=== PATIENT | female | born 1990 | race Caucasian/White ===

== ENCOUNTER 2018-05-21 18:25 | Emergency (ER) | payer OTHER, SELFPAY ==
[2018-05-21 18:44] VITALS: BP 141/86; PULSE 97; RESP 16; TEMP 36.6; O2SAT 100; BMI 37.5
--- NOTE | 2018-05-21 19:11 | PC.NURSE ---
Feels like she is getting tiny zaps in her chest
[2018-05-21 19:18] VITALS: BP 139/84; PULSE 79; RESP 13; O2SAT 100
--- NOTE | 2018-05-21 19:29 | ED_ITS ---
HPI - Arrhythmia/Palpitations General Chief Complaint: Arrhythmia/Palpitations Stated Complaint: HEART PALPITATIONS,LIGHTHEADED Time Seen by Provider: 05/21/18 19:28 Source: patient Mode of arrival: ambulatory Limitations: no limitations History of Present Illness HPI narrative: The patient arrives complaining of palpitations. Earlier today she developed a sensation of skipping in her heartbeat in her chest. She is having no chest pain, dyspnea, weakness or dizziness. She doess not there like she could pass out. She has no cardiac history. She has a strong family history of cardiac illness, through multiple family members. She has no hypertension, diabetes or hyperlipidemia. She does occasionally vape. She does not use cigarettes. This is happened before, but never to this degree. She tells me she has not been drinking enough water, hydration might be an issue. She is on antidepressant/antianxiety tablet, she forgot to take it yesterday morning. She did take it yesterday evening. She has no recent illness, no URI symptoms, no abdominal discomfort, nausea vomiting. Her LMP was several days ago. She has no dysuria. Related Data Allergies Allergy/AdvReac Type Severity Reaction Status Date / Time IV contrast Allergy Uncoded 05/21/18 18:47 Review of Systems Review of Systems All systems reviewed & are unremarkable except as noted in HPI and below Constitutional Denies chills, Denies fever(s), Denies lethargy and Denies weakness ENT Ears, Nose, Mouth, and Throat: Denies change in voice, Denies vertigo, Denies dizziness, Denies neck pain and Denies sore throat Cardiovascular Denies chest pain, Denies syncope, Denies lightheadedness, Reports palpitations , Denies dyspnea, Denies dyspnea on exertion and Denies orthopnea Respiratory Denies cough, Denies dyspnea, Denies dyspnea on exertion and Denies wheezing Gastrointestinal Gastrointestinal: Denies abdominal pain, Denies change in bowel habits, Denies diarrhea, Denies nausea and Denies vomiting Genitourinary Denies dysuria and Denies flank pain Musculoskeletal Denies joint swelling and Denies neck pain Integumentary/Breasts Denies pruritus, Denies erythema, Denies rash and Denies wounds Neurologic Denies confusion, Denies vertigo, Denies dizziness, Denies syncope and Denies weakness Psychiatric Denies confusion Endocrine Reports palpitations Allergic/Immunologic Denies wheezing [facility] Social History Smoking Status: Never smoker Exam Initial Vital Signs Initial Vital Signs: Vital Signs Temperature 97.9 F 05/21/18 18:44 Pulse Rate 97 H 05/21/18 18:44 Respiratory Rate 16 05/21/18 18:44 Blood Pressure 141/86 H 05/21/18 18:44 Pulse Oximetry 100 05/21/18 18:44 Const General: cooperative and well developed Nutritional Appearance: well nourished Orientation: alert, awake, oriented x3 and not confused [facility] Head: normocephalic and atraumatic Ears: external ears normal and TM's normal bilaterally Nose: external nose normal and No nasal discharge Face and sinus: sinuses nontender, face symmetric, no sinus tenderness and No dry mucous membranes Mouth: oral mucosae normal and moist mucous membranes Teeth and gingiva: dentition normal Throat: tonsils normal and uvula midline Neck Neck: normal visual inspection, trachea midline, No lymphadenopathy, No midline deformity and No JVD Lymphatic: No lymphedema Chest Chest: normal inspection of the chest Resp Effort & Inspection: normal respiratory effort, able to speak in complete sentences, no respiratory distress and no use of accessory muscles Auscultation: clear to auscultation bilaterally, no rales, no rhonchi and no wheezes Cardio Rate: regular rate Rhythm: regular rhythm Heart Sounds: no click, no gallops, no murmurs and no rubs Pulses: normal peripheral pulses GI Inspection: non-distended Palpation: soft, no hepatosplenomegaly, No guarding, No pulsatile mass and No tender Auscultation: normal bowel sounds Skin General: no rashes or lesions noted, No jaundice and No petechiae Neuro General: alert, oriented x3, gait normal and no focal motor deficits Speech: speech normal Extrem General: full ROM, no clubbing, cyanosis or edema, no pedal edema and no calf tenderness Course Hospital Course: As I interview the patient 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 She had occasional PVCs that corresponded well with the sensation she was experiencing her chest. There is no suggestion of a arrhythmia, only occasional unifocal PVCs. Orders Ordered: ED Orders 05/21/18 18:50 EKG-12 Lead Stat 05/21/18 18:53 Basic Metabolic Panel Stat Complete Blood Count AUTO DIFF Stat Magnesium Stat PTT [Partial Thromboplastin Time] Stat Prothrombin Time INR Stat Troponin with CK Cardiac Panel Stat 05/21/18 20:07 XR chest 1V Stat Vital Signs - 8 hr 05/21/18 18:44 05/21/18 19:18 05/21/18 20:13 Temperature 97.9 F Pulse Rate 97 H 79 89 Respiratory Rate 16 13 18 Blood Pressure 141/86 H Blood Pressure [Left Arm] 139/84 H 124/57 H Pulse Oximetry 100 100 99 MDM - Arrhythmia/Palpitations Lab Data Result diagrams: 05/21/18 18:53 05/21/18 18:53 Lab Results 05/21/18 05/21/18 05/21/18 Range/Units 18:53 18:53 18:53 WBC 9.9 (4.5-11.0) X10^3/uL RBC 4.56 (4.0-5.2) X10^6/uL Hgb 13.5 (12.0-16.0) g/dL Hct 39.5 (36-46) % MCV 86.5 (80-100) fL MCH 29.7 (26-34) PG MCHC 34.3 (30-36) % RDW 13.7 (11.6-14.8) % Plt Count 369 (150-400) X10^3/uL Neut % (Auto) 55.3 (50-75) % Lymph % (Auto) 33.9 (25-40) % [place] % (Auto) 7.2 (3-14) % Eos % (Auto) 2.2 (2-4) % Baso % (Auto) 1.4 (0-2) % Neut # (Auto) 5500 (9972-1068) /uL PT 11.8 (10.1-12.7) SECONDS INR 1.1 (0.9-1.3) APTT 29 (26.4-36.2) SECONDS Sodium 141 (137-145) mmol/L Potassium 3.5 (3.4-5.1) mmol/L Chloride 104 (98-107) mmol/L Carbon Dioxide 23 (22-32) mmol/L BUN 16 (7-17) mg/dL Creatinine 0.70 (0.52-1.04) mg/dL Estimated GFR > 60.0 (>60) mL/min BUN/Creatinine Ratio 22.9 H (6-22) Glucose 87 (70-100) mg/dL Calcium 9.9 (8.4-10.2) mg/dL Magnesium (1.6-2.3) mg/dL Total Creatine Kinase (30-135) U/L CK-MB (CK-2) Troponin I (0.01-0.034) ng/mL 05/21/18 Range/Units 18:53 WBC (4.5-11.0) X10^3/uL RBC (4.0-5.2) X10^6/uL Hgb (12.0-16.0) g/dL Hct (36-46) % MCV (80-100) fL MCH (26-34) PG MCHC (30-36) % RDW (11.6-14.8) % Plt Count (150-400) X10^3/uL Neut % (Auto) (50-75) % Lymph % (Auto) (25-40) % [place] % (Auto) (3-14) % Eos % (Auto) (2-4) % Baso % (Auto) (0-2) % Neut # (Auto) (2054-5936) /uL PT (10.1-12.7) SECONDS INR (0.9-1.3) APTT (26.4-36.2) SECONDS Sodium (137-145) mmol/L Potassium (3.4-5.1) mmol/L Chloride (98-107) mmol/L Carbon Dioxide (22-32) mmol/L BUN (7-17) mg/dL Creatinine (0.52-1.04) mg/dL Estimated GFR (>60) mL/min BUN/Creatinine Ratio (6-22) Glucose (70-100) mg/dL Calcium (8.4-10.2) mg/dL Magnesium 1.9 (1.6-2.3) mg/dL Total Creatine Kinase 71 (30-135) U/L CK-MB (CK-2) TNP Troponin I < 0.012 (0.01-0.034) ng/mL ECG Data Attestation: I personally reviewed and interpreted this ECG as follows: Discharge Plan Departure Patient Disposition: Home, Self-Care Clinical Impression: Frequent PVCs Instructions: Premature Ventricular Beats Activity Restrictions/Additional Instructions: Your electrolytes, blood counts, renal function all labs tests are normal. Be sure you are drinking plenty of fluids daily, maintaining good hydration. If symptoms persist follow up with her doctor. Return to ER for chest pain, problems breathing, or feeling weak or dizzy.
[2018-05-21 19:40] LABS: Add Manual Diff / Slide Review NO; Basophils Percent Auto 1.4 % (0-2); Eosinophils Percent Auto 2.2 % (2-4); Hematocrit 39.5 % (36-46); Hemoglobin 13.5 g/dL (12.0-16.0); Lymphocytes Percent Auto 33.9 % (25-40); Mean Corpuscular HGB Conc 34.3 % (30-36); Mean Corpuscular Hemoglobin 29.7 PG (26-34); Mean Corpuscular Volume 86.5 fL (80-100); Monocytes Percent Auto 7.2 % (3-14); Neutrophils Absolute Auto 5500 /uL (3000-5900); Neutrophils Percent Auto 55.3 % (50-75); Platelet Count 369 X10^3/uL (150-400); Red Blood Cell Count 4.56 X10^6/uL (4.0-5.2); Red Cell Distribution Width 13.7 % (11.6-14.8); White Blood Cell Count 9.9 X10^3/uL (4.5-11.0)
[2018-05-21 19:42] LABS: INR 1.1 (0.9-1.3); Prothrombin Time 11.8 SECONDS (10.1-12.7)
[2018-05-21 19:45] LABS: PTT Partial Thromboplastin Tim 29 SECONDS (26.4-36.2)
[2018-05-21 19:53] LABS: Creatine Kinase 71 U/L (30-135)
[2018-05-21 19:54] LABS: BUN Creatinine Ratio 22.9 (6-22); Blood Urea Nitrogen 16 mg/dL (7-17); Calcium 9.9 mg/dL (8.4-10.2); Carbon Dioxide 23 mmol/L (22-32); Chloride 104 mmol/L (98-107); Estimated Glomerular Filt Rate > 60.0 mL/min (>60); Glucose 87 mg/dL (70-100); HEMOLYSIS 36 (0-50); Potassium 3.5 mmol/L (3.4-5.1); Sodium 141 mmol/L (137-145)
--- NOTE | 2018-05-21 20:07 | DI.RAD.S_ITS ---
PROCEDURE: XR CHEST 1V INDICATIONS: dizziness with sharp spasms in chest TECHNIQUE: One view of the chest was acquired. COMPARISON: None. FINDINGS: Surgical changes and devices: None. Lungs and pleura: No pleural effusions or pneumothorax. Lungs are clear. Mediastinum: Mediastinal contours appear normal. Heart size is normal. Bones and chest wall: No suspicious bony lesions. Overlying soft tissues appear unremarkable. IMPRESSION: No acute pulmonary process. Dictated by: Yareli Aleman M.D. on 05/21/2018 at 21:29 Approved by: Yareli Aleman M.D. on 05/21/2018 at 21:29
[2018-05-21 20:11] LABS: Troponin I < 0.012 ng/mL (0.01-0.034)
[2018-05-21 20:13] VITALS: BP 124/57; PULSE 89; RESP 18; O2SAT 99
[2018-05-21 20:34] LABS: Magnesium 1.9 mg/dL (1.6-2.3)
== END 2018-05-21 21:02 | disposition home or self-care (01) ==
PROVIDERS: Emergency Provider Emergency Medicine
DX: I49.3 Ventricular premature depolarization (principal)
CPT/HCPCS: 36591; 71045; 80048; 81003; 81025; 82550; 83735; 84484; 85025; 85610; 85730; 93005; 93041; 99283; 99285

== ENCOUNTER → 2018-07-11 07:56 | Outpatient (CLI) | payer OTHER, SELFPAY ==
--- NOTE | 2018-07-11 13:36 | DI.ECHO.S_ITS ---
Echocardiogram Report + + :Name: GUILHERME MACHADO Study Date: 07/11/2018 Height: 67 in : :[facility] Weight: 244 lb : : Gender: Female BSA: 2.2 m2 : :: 1990 Age: 27 yrs BP: 122/72 mmHg: :Reason For Study: Palpitations : : Performed By: Peace Cheema : :Referring: ELLEN SILVESTRE : + + Interpretation Summary The left ventricle is normal in size, wall thickness, and systolic function without any focal wall motion abnormalities. The ejection fraction is estimated to be 60-65%. Assessment of diastolic parameters indicates normal left ventricular diastolic function and normal filling pressures. The right ventricle grossly appears normal in size with probable normal systolic function. The right ventricular systolic pressure is estimated at 18 mmHg assuming a right atrial pressure of 3 mm Hg. The IVC is of normal diameter and collapses greater than 50% with a sniff. This suggests a normal right atrial pressure of 3 mm Hg. No significant valvular pathology. Normal echocardiogram. Of note the patient had intermittent ectopy during the exam which might correlate with the history of palpitations. Procedure: A two-dimensional transthoracic echocardiogram with color flow and Doppler was performed. The study quality was technically good. There is no prior echocardiogram noted for this patient. The patient was in normal sinus rhythm during the exam. Left Ventricle: The left ventricle is normal in size, wall thickness, and systolic function without any focal wall motion abnormalities. The ejection fraction is estimated to be 60-65%. Assessment of diastolic parameters indicates normal left ventricular diastolic function and normal filling pressures. Right Ventricle: The right ventricle grossly appears normal in size with probable normal systolic function. Atria: The left atrial size is normal. Right atrial size is normal. The interatrial septum is intact with no evidence for an atrial septal defect. Mitral Valve: The mitral valve is normal in structure and function. There is no mitral regurgitation noted. Aortic Valve: The aortic valve opens well. No aortic regurgitation is present. Tricuspid Valve: The tricuspid valve is normal in structure and function. There is a trace or physiologic amount of tricuspid regurgitation. The right ventricular systolic pressure is estimated at 18 mmHg assuming a right atrial pressure of 3 mm Hg. Pulmonic Valve: The pulmonic valve is not well seen, but is grossly normal. There is no pulmonic valvular regurgitation. Great Vessels: The aortic root is normal size. The dimensions of the ascending aorta are normal. The IVC is of normal diameter and collapses greater than 50% with a sniff. This suggests a low right atrial pressure of 3 mm Hg. Pericardium/ Pleura There is no pericardial effusion. There is no pleural effusion. MMode/2D Measurements & Calculations LVIDd: 4.4 cm Ao root diam: 3.3 cm LVIDs: 3.0 cm Aortic Jxn: 2.5 cm FS: 31.4 % asc Aorta Diam: 3.0 cm EPSS: 0.73 cm Ao Arch Diam (Prox Trans): 2.5 cm IVSd: 0.87 cm LVPWd: 0.68 cm LV cabral. diameter/BSA (cm/m^2): 2.0 LV sys. diameter/BSA (cm/m^2): 1.4 LA dimension: 3.6 cm RA long axis: 4.5 cm LA A2 area: 20.0 cm2 RA area: 14.6 cm2 LA A4 area: 19.6 cm2 RA vol: 40.1 ml LA length (vol): 5.7 cm RA : 18.2 ml/m2 LA vol: 58.6 ml IVC diam: 1.7 cm LA vol index: 26.6 ml/m2 RVDd major: 5.6 cm RVD1 (basal): 3.3 cm RVD2 (mid): 3.0 cm Doppler Measurements & Calculations Ao V2 max: 130.5 cm/sec MV E max sanchez: 97.9 cm/sec Ao V2 mean: 86.0 cm/sec MV A max sanchez: 63.6 cm/sec Ao max P.8 mmHg MV E/A: 1.5 Ao mean P.4 mmHg Med Peak E' Sanchez: 9.5 cm/sec Ao V2 VTI: 25.7 cm E/E' med: 10.3 Lat Peak E' Sanchez: 10.4 cm/sec E/E' lat: 9.4 E/e' average: 9.9 MV dec time: 0.17 sec MV P1/2t: 50.4 msec TR max sanchez: 198.5 cm/sec MV P1/2t max sanchez: 97.4 cm/sec TR max P.8 mmHg MVA(P1/2t): 4.4 cm2 PA V2 max: 78.6 cm/sec PA V2 mean: 52.5 cm/sec PA mean P.3 mmHg PA Accel Time: 0.22 sec _ Electronically signed by: Aristeo Coreas M.D. on Reading Physician:07/11/2018 01:36 PM
== END ==
PROVIDERS: PCP Nurse Practitioner Family; Visit Provider Nurse Practitioner Family
DX: R00.2 Palpitations (principal); E78.5 Hyperlipidemia, unspecified
CPT/HCPCS: 93306

== ENCOUNTER → 2018-08-09 10:23 | Outpatient (CLI) | payer OTHER, SELFPAY ==
--- NOTE | 2018-08-09 | DI.MRI.S_ITS ---
PROCEDURE: MR CERVICAL SPINE WO CON INDICATIONS: BILATERAL UPPER AND LOWER EXTREMITY NUMBNESS TECHNIQUE: Noncontrast sagittal T1 spin echo and T2 fast spin echo, sagittal STIR, foraminal oblique sagittal T2 fast spin echo, and axial gradient echo or T2 fast spin echo through the cervical spine. COMPARISON: None. FINDINGS: Image quality: Diagnostic, with note made of motion artifact. Alignment and Curvature: There is normal bony alignment. Bone Marrow: Marrow demonstrates normal overall signal. Spinal Cord: Visualized spinal cord has normal size and signal. No cerebellar tonsillar herniation. Paraspinous Soft Tissues: No paravertebral masses. Prevertebral soft tissues are normal in thickness. C2-C3: Normal appearance. C3-C4: Normal appearance. C4-C5: The disc height is relatively well-preserved. Mild to moderate disc osteophyte complex is seen, with a mild central disc osteophyte protrusion. No neural foraminal narrowing is seen. Mild central canal narrowing is seen, with associated mild mass effect upon the ventral spinal cord. C5-C6: No significant abnormality is seen. C6-C7: Normal appearance. C7-T1: Normal appearance. IMPRESSION: Focal C4-C5 degenerative change, with a focal central disc osteophyte protrusion. Dictated by: Jeffrey Guzman M.D. on 08/09/2018 at 11:06 Approved by: Jeffrey Guzman M.D. on 08/09/2018 at 11:08
== END ==
PROVIDERS: PCP Nurse Practitioner Family; Visit Provider Family Medicine
DX: M50.221 Other cervical disc displacement at C4-C5 level (principal); M25.78 Osteophyte, vertebrae; R20.0 Anesthesia of skin
CPT/HCPCS: 72141

== ENCOUNTER → 2018-08-22 11:57 | Outpatient (CLI) | payer OTHER, SELFPAY ==
--- NOTE | 2018-08-22 12:03 | DI.RAD.S_ITS ---
PROCEDURE: XR LUMBAR SPINE MIN 4V INDICATIONS: Lumbosacral spondylosis TECHNIQUE: 5 views of the lumbar spine acquired. COMPARISON: None. FINDINGS: Bones: 5 nonrib-bearing vertebrae are present. There is normal bony alignment. No vertebral body compression fractures. No suspicious bony lesions. There is mild degenerative disc disease with disc space narrowing and small osteophytes at L1-L2 and L2-L3. Soft tissues: Overlying bowel gas pattern is normal. No suspicious soft tissue calcifications. Flexion/extension: There is normal range of motion, with preserved normal alignment. IMPRESSION: Mild degenerative disc disease in lumbar spine. Dictated by: Ranjana Stapleton M.D. on 08/22/2018 at 17:02 Approved by: Ranjana Stapleton M.D. on 08/23/2018 at 11:22
--- NOTE | 2018-08-22 12:03 | DI.RAD.S_ITS ---
PROCEDURE: XR CERVICAL SPINE 4V OR 5V INDICATIONS: Cervical spondylosis TECHNIQUE: 5 views of the cervical spine acquired. COMPARISON: None. FINDINGS: Bones: No fractures or dislocations to the C7 level. There is loss of cervical lordosis. Oblique images demonstrate no bony foraminal stenoses. Soft tissues: No prevertebral soft tissue swelling. IMPRESSION: Loss of cervical lordosis. Dictated by: Ranjana Stapleton M.D. on 08/22/2018 at 17:04 Approved by: Ranjana Stapleton M.D. on 08/23/2018 at 11:22
== END ==
PROVIDERS: PCP Nurse Practitioner Family; Visit Provider Physical Medicine & Rehabilitation
DX: M47.817 Spondylosis without myelopathy or radiculopathy, lumbosacral region (principal); M51.36 Other intervertebral disc degeneration, lumbar region; M47.812 Spondylosis without myelopathy or radiculopathy, cervical region; R20.2 Paresthesia of skin; M50.221 Other cervical disc displacement at C4-C5 level
CPT/HCPCS: 72050; 72110

== ENCOUNTER → 2018-09-11 19:07 | Outpatient (CLI) | payer OTHER, SELFPAY ==
--- NOTE | 2018-09-11 19:09 | DI.MRI.S_ITS ---
PROCEDURE: MR LUMBAR SPINE WO CON INDICATIONS: Lumbosacral spondylosis with neurogenic claudication TECHNIQUE: Noncontrast sagittal T1 spin echo and T2 fast echo, sagittal STIR, axial T1 and T2 fast spin echo through the lumbar spine. In cases with scoliosis, additional coronal T2 fast spin echo may be performed. COMPARISON: [facility], CR, XR LUMBAR SPINE MIN 4V, 08/22/2018, 12:07. FINDINGS: Image quality: Excellent. Alignment and Curvature: There is normal bony alignment. Bone Marrow: Marrow is of normal overall signal. No acute vertebral body compression fractures. Spinal Cord: Conus medullaris terminates at the L1 level. Visualized cord demonstrates normal signal and size. Paraspinous Soft Tissues: No paravertebral masses. T12-L1: Normal appearance. L1-L2: Normal appearance. L2-L3: The disc height and disc signal are relatively well-preserved. There is a mild subligamentous disc extrusion seen centrally and on the right, as on series 4 image 9 and on series 5 image 13. No significant neural foraminal or central canal narrowing are seen. L3-L4: The disc height and disk signal are well-preserved. Mild to moderate disc bulge is seen. Mild bilateral neural foraminal narrowing is seen. Mild central canal narrowing is seen. L4-L5: The disc height is well-preserved. Loss of disc signal is seen at this level. Mild disc bulge is seen, which is eccentric to the right. No significant neural foraminal or central canal narrowing are seen. L5-S1: Level within normal limits. IMPRESSION: Mild lumbar spine degenerative changes are seen. There is a small disc extrusion seen centrally at the L2-L3 level. Dictated by: Jeffrey Guzman M.D. on 09/12/2018 at 8:30 Approved by: Jeffrey Guzman M.D. on 09/12/2018 at 8:33
== END ==
PROVIDERS: PCP Nurse Practitioner Family; Visit Provider Physical Medicine & Rehabilitation
DX: M47.817 Spondylosis without myelopathy or radiculopathy, lumbosacral region (principal)
CPT/HCPCS: 72148

== ENCOUNTER → 2018-09-25 14:50 | Outpatient (CLI) | payer OTHER, SELFPAY | PROVIDERS: PCP Nurse Practitioner Family | DX: Z23 Encounter for immunization (principal) | CPT/HCPCS: 90471; 90686 ==

== ENCOUNTER → 2018-11-07 08:26 | Outpatient (CLI) | payer OTHER, SELFPAY ==
--- NOTE | 2018-11-08 15:46 | PM.PFT.1 ---
Pulmonary Function Test Referral & Results Date Patient Seen: 11/07/18 Requesting provider: Ramonita Grimaldo Indication: Obesity Results: The spirometry demonstrates an FVC of 4.50 L which is 180% of predicted. The FEV1 was measured at 3.58 L which is 101% of predicted. The FEV1/FVC ratio was 79 which is 93% of predicted. Following the administration of bronchodilator there was a 33% improvement in FEF 25-75%. Lung volumes show an SVC of 4.45 L which is 111% of predicted. The diffusing capacity was measured at 29.23 which is 103% of predicted. The maximum voluntary ventilation was normal Interpretation: This study demonstrates probably normal pulmonary function. There was a slight improvement in small airway flow based on FEF 25-75% improvement after bronchodilator but baseline spirometry was actually normal.
== END ==
PROVIDERS: PCP Nurse Practitioner Family; Visit Provider Nurse Practitioner Family
DX: E66.01 Morbid (severe) obesity due to excess calories (principal)
CPT/HCPCS: 93005; 93010; 94060; 94726; 94729

== ENCOUNTER → 2019-08-19 08:57 | Outpatient (CLI) | payer OTHER, SELFPAY | PROVIDERS: PCP Nurse Practitioner Family | DX: Z23 Encounter for immunization (principal) | CPT/HCPCS: 90471; 90686 ==

== ENCOUNTER → 2019-09-03 11:12 | Outpatient (CLI) | payer OTHER, SELFPAY ==
--- NOTE | 2019-09-03 | DI.RAD.S_ITS ---
PROCEDURE: XR KNEE LT 3V INDICATIONS: LEFT KNEE PAIN TECHNIQUE: 3 views of the knee were acquired. COMPARISON: None. FINDINGS: Bones: No fractures or dislocations. No suspicious bony lesions. Soft tissues: No joint effusion. No suspicious soft tissue calcifications. IMPRESSION: No acute radiographic findings. If pain persists, followup imaging in 5-7 days is recommended to exclude occult fracture. Dictated by: Desi Mcdonald M.D. on 09/03/2019 at 16:18 Approved by: Desi Mcdonald M.D. on 09/03/2019 at 16:18
== END ==
PROVIDERS: PCP Nurse Practitioner Family; Visit Provider Nurse Practitioner
DX: M25.562 Pain in left knee (principal)
CPT/HCPCS: 73562

== ENCOUNTER 2019-11-12 23:57 | Emergency (ER) | payer OTHER, SELFPAY ==
[2019-11-13 00:06] VITALS: BP 143/85; PULSE 101; RESP 15; TEMP 37.1; O2SAT 97; BMI 35.4
[2019-11-13 00:11] LABS: Bacteria Urine None Seen
[2019-11-13 00:17] LABS: Appearance Urine UA SL CLOUDY
--- NOTE | 2019-11-13 00:17 | ED_ITS ---
HPI - Female Genitourinary General Chief complaint: Urogenital-Female Stated complaint: blood in urine nausea back pain Time Seen by Provider: 11/13/19 00:03 Source: patient Mode of arrival: Ambulatory Limitations: no limitations History of Present Illness HPI Narrative: Patient is a 29-year-old female with history of kidney stones presenting with painful frequent bloody urination and some left-sided flank pain for the last 2 days. She feels a little nauseous today her flank pain does not radiate around to her stomach but she does have some suprapubic pain. She took some azo today to help with her dysuria however she had blood clots in her normal today. She is worried to she had a previously obstructed kidney stone which did not require any intervention and her symptoms were similar. Her last kidney stones were a couple of years ago. MD Complaint: dysuria and UTI Onset (ago): day(s) (2) Female Urogenital Radiation: L Flank Related Data Home Medications Medication Instructions Recorded Confirmed venlafaxine 75 mg capsule,extended 75 mg PO DAILY 08/22/18 11/03/19 release 24 hr bupropion HCl 150 mg tablet,12 hr 450 mg PO DAILY each 04/28/19 11/03/19 sustained-release gabapentin 300 mg capsule 300 mg PO TID PRN cap 04/28/19 11/03/19 Previous Rx's Medication Instructions Recorded inhalational spacing device #1 each 07/01/19 phentermine 37.5 mg tablet 37.5 mg PO BID #90 tab 07/15/19 albuterol sulfate 90 mcg/actuation 2 inhalation INHALATION .COMPLEX 11/03/19 aerosol inhaler PRN #8 gram ondansetron 4 mg PO Q8H PRN #10 tab 11/13/19 sulfamethoxazole-trimethoprim 1 tab PO BID 7 Days #14 tab 11/13/19 [Bactrim DS] Allergies Allergy/AdvReac Type Severity Reaction Status Date / Time Iodinated Contrast Media Allergy Verified 11/13/19 00:06 Review of Systems Review of Systems Narrative: GENERAL: Denies chills, fatigue, malaise, fever, sweats, travel HEENT: Denies sinus pain, ear pain, sore throat, difficulty swallowing, neck pain RESPIRATORY: Denies dyspnea, cough, wheezing, hemoptysis, sputum. CARDIOVASCULAR: Denies chest pain, palpitations, orthopnea, edema GASTROINTESTINAL: Denies nausea, vomiting, abdominal pain, diarrhea, constipation, melena. : See HPI MUSCULOSKELETAL: Denies weakness, joint pain, or bony pain SKIN: No rash, no erythema, no pruritus NEUROLOGIC: Denies weakness, dizziness, headache, numbness, change in speech, confusion PSYCHIATRIC: No concerning psychosocial issues. 12 point review of systems is negative except for those stated above and HPI Patient History Medical History Arthralgia of multiple joints (Chronic) Asthma (Acute) Herniated nucleus pulposus, C4-5 (Chronic) Lumbar facet arthropathy (Chronic) Lumbosacral spondylosis (Chronic) Paresthesia of upper extremity (Chronic) Sleep apnea (Acute) alcohol intake frequency: holidays/special occasions only Substance Use Type: does not use Exam Initial Vital Signs Initial Vital Signs: Vital Signs Temperature 98.8 F 11/13/19 00:06 Pulse Rate 101 H 11/13/19 00:06 Respiratory Rate 15 11/13/19 00:06 Blood Pressure 143/85 H 11/13/19 00:06 Pulse Oximetry 97 11/13/19 00:06 GENERAL: Well-appearing, well-nourished and in no acute distress. HEENT: Head atraumatic,EOMI, pupils reactive, face symmetric, moist mucous membranes CARDIOVASCULAR: Regular rate and rhythm without murmurs, rubs or gallops. RESPIRATORY: Breath sounds equal bilaterally, no wheezes rales or rhonchi. ABDOMEN: Soft, mild suprapubic pain. Normoactive bowel sounds all 4 quadrants. No guarding or rebound. : Mild left CVA tenderness EXTREMITIES: Normal range of motion, no clubbing or edema. Neurovascularly intact NEUROLOGICAL: Alert and oriented x4.Normal gait and speech. Cranial nerves II through XII grossly intact. SKIN: Warm, dry, no laceration, no petechiae, no rashes or lesions. Course Orders Ordered: ED Orders 11/13/19 00:01 Urinalysis and Microscopic Stat Urine Culture Stat 11/13/19 00:10 Complete Blood Count AUTO DIFF Stat Comprehensive Metabolic Panel Stat Lipase Stat Discontinued Medications Ondansetron HCl (Zofran) 4 mg IV NOW ONE Stop: 11/13/19 00:29 Last Admin: 11/13/19 00:37 Dose: 4 mg Documented by: DIVINE Ondansetron HCl (Zofran Odt Prepack) 1 bottle MISC SEEINSTR ONE Stop: 11/13/19 01:09 Last Admin: 11/13/19 01:18 Dose: 1 bottle Documented by: DIVINE Trimethoprim/Sulfamethoxazole (Bactrim Ds Prepack) 1 bottle MISC SEEINSTR ONE Stop: 11/13/19 01:09 Last Admin: 11/13/19 01:18 Dose: 1 bottle Documented by: DIVINE Vital Signs Vital signs: Vital Signs - 8 hr 11/13/19 00:06 11/13/19 01:19 Temperature 98.8 F Pulse Rate 101 H 84 Respiratory Rate 15 17 Blood Pressure 143/85 H Blood Pressure [Right Arm] 117/65 Pulse Oximetry 97 99 MDM - Female Genitourinary Lab Data Attestation: I reviewed the patient's lab results. Result diagrams: 11/13/19 00:10 11/13/19 00:10 Labs: Lab Results 11/13/19 11/13/19 11/13/19 Range/Units 00:01 00:10 00:10 WBC 13.5 H (4.5-11.0) X10^3/uL RBC 4.25 (4.0-5.2) X10^6/uL Hgb 12.7 (12.0-16.0) g/dL Hct 37.2 (36-46) % MCV 87.5 (80-100) fL MCH 29.8 (26-34) PG MCHC 34.0 (30-36) % RDW 13.8 (11.6-14.8) % Plt Count 403 H (150-400) X10^3/uL Neut % (Auto) 68.2 (50-75) % Lymph % (Auto) 23.0 L (25-40) % [place] % (Auto) 5.9 (3-14) % Eos % (Auto) 2.3 (2-4) % Baso % (Auto) 0.6 (0-2) % Neut # (Auto) 9200 H (3508-5854) /uL Lymph # (Auto) 3100 (8009-7610) /uL [place] # (Auto) 800 (0-900) /uL Eos # (Auto) 300 (0-450) /uL Baso # (Auto) 100 (0-100) /uL Sodium 138 (137-145) mmol/L Potassium 3.4 (3.4-5.1) mmol/L Chloride 103 (98-107) mmol/L Carbon Dioxide 27 (22-32) mmol/L BUN 13 (7-17) mg/dL Creatinine 0.60 (0.52-1.04) mg/dL Estimated GFR > 60.0 (>60) mL/min BUN/Creatinine Ratio 21.7 (6-22) Glucose 109 H (70-100) mg/dL Calcium 9.1 (8.4-10.2) mg/dL Total Bilirubin 0.3 (0.2-1.3) mg/dL AST 22 (14-36) IU/L ALT 20 (<35) IU/L Alkaline Phosphatase 70 (38-126) U/L Total Protein 7.3 (6.3-8.2) g/dL Albumin 4.2 (3.5-5.0) g/dL Globulin 3.1 (1.7-4.1) g/dL Albumin/Globulin Ratio 1.4 (1.0-2.8) Lipase 51 (23-300) U/L Urine Color [place] Urine Appearance Sl cloudy Urine pH Not Reportable Ur Specific [place] Not Reportable Urine Protein Not Reportable Urine Glucose (UA) Not Reportable Urine Ketones Not Reportable Urine Occult Blood Not Reportable Urine Nitrate Not Reportable Urine Bilirubin Not Reportable Urine Urobilinogen Not Reportable Ur Leukocyte Esterase Not Reportable Urine RBC 5-10/hpf H (0-5/HPF) Urine WBC 10-30/hpf H (0-5/HPF) Ur Squamous Epith Cells None seen (0-5/HPF) Urine Bacteria None seen (None) Ur Culture Indicated? Specimen cultured Point of Care Testing Test Results Negative MDM Narrative Medical decision making narrative: The patient is very mild flank pain. I discussed with her CT versus no CT she has had previous kidney stones that she has passed without any sort of intervention. Symptoms are also consistent with UTI she has bacteria in her urine as well. Blood work overall is reassuring tavares of acute kidney injury she has mild leukocytosis of 13. Does not appear septic. Will put her on antibiotics. At this time will hold off on CT if pain is worsening she understands to come back to the emergency department for probable imaging. Discharge Plan Departure Patient Disposition: Home Clinical Impression: Kidney stone on left side UTI (urinary tract infection) Qualifiers: Urinary tract infection type: acute cystitis Hematuria presence: with hematuria Qualified Code(s): N30.01 - Acute cystitis with hematuria Discharge Date/Time: 11/13/19 01:18 Instructions: DI for Kidney Stones, DI for Urinary Tract Infection (UTI) Activity Restrictions/Additional Instructions: *You have been diagnosed with kidney stone, UTI *What to do: At this time withhold off CT, you may require imaging if you are having worsening or persistent pain. Otherwise I suspect that if your truly having kidney stone it will pass as the others have previously. *Continue to take medications as directed--> SENT TO [facility] IN [place] Bactrim 1 tablet twice a day for 7 days Zofran 1 tablet every 8 hours as needed for nausea or vomiting Ibuprofen 800 mg every 8 hours as needed for [id number] pain *Follow up with your primary care provider in 2-3 days *Return to ER if you should have increased orellana flank pain and fever not able to tolerate fluids or any new, worsening or concerning symptoms Prescriptions: New sulfamethoxazole-trimethoprim [Bactrim DS] 800-160 mg tablet 1 tab PO BID 7 Days Qty: 14 RF: 0 ondansetron 4 mg tablet,disintegrating 4 mg PO Q8H PRN (Reason: nausea and vomiting) Qty: 10 RF: 0 No Action phentermine 37.5 mg tablet 37.5 mg PO BID Qty: 90 RF: 0 bupropion HCl [Wellbutrin SR] 150 mg tablet sustained-release 12 hr 450 mg PO DAILY RF: 0 gabapentin 300 mg capsule 300 mg PO TID PRNRF: 0 albuterol sulfate 90 mcg/actuation HFA aerosol inhaler 2 inhalation INHALATION .COMPLEX PRN (Reason: shortness of breath or wheezing) Qty: 8 RF: 2 (DME) Flexichamber spacer See Dose Instructions .ROUTE .MEDSUPPLY Qty: 1 RF: 0 venlafaxine 75 mg capsule,extended release 24hr 75 mg PO DAILY RF: 0 Referrals: Ramonita Grimaldo ARNP [Primary Care Provider] -
[2019-11-13] MEDS: ONDANSETRON 4 MG/2 ML INJ IV (00:37)
[2019-11-13 00:40] LABS: Color Urine UA ORANGE
[2019-11-13 00:41] LABS: Culture Indicated Urine Specimen Cultured; RBC Urine 5-10/HPF (0-5/HPF); Squamous Epithelial Cell Urine None Seen (0-5/HPF); WBC Urine 10-30/HPF (0-5/HPF)
[2019-11-13 00:45] LABS: Add Manual Diff / Slide Review NO; Alanine Aminotransferase 20 IU/L (<35); Albumin 4.2 g/dL (3.5-5.0); Albumin Globulin Ratio 1.4 (1.0-2.8); Alkaline Phosphatase 70 U/L (38-126); Aspartate Aminotransferase 22 IU/L (14-36); BUN Creatinine Ratio 21.7 (6-22); Basophils Absolute Auto 100 /uL (0-100); Basophils Percent Auto 0.6 % (0-2); Bilirubin Total 0.3 mg/dL (0.2-1.3); Blood Urea Nitrogen 13 mg/dL (7-17); Calcium 9.1 mg/dL (8.4-10.2); Carbon Dioxide 27 mmol/L (22-32); Chloride 103 mmol/L (98-107); Eosinophils Absolute Auto 300 /uL (0-450); Eosinophils Percent Auto 2.3 % (2-4); Estimated Glomerular Filt Rate > 60.0 mL/min (>60); Globulin 3.1 g/dL (1.7-4.1); Glucose 109 mg/dL (70-100); HEMOLYSIS < 15 (0-50); Hematocrit 37.2 % (36-46); Hemoglobin 12.7 g/dL (12.0-16.0); Lipase 51 U/L (23-300); Lymphocytes Absolute Auto 3100 /uL (1100-4500); Mean Corpuscular Hemoglobin 29.8 PG (26-34); Mean Corpuscular Volume 87.5 fL (80-100); Monocytes Absolute Auto 800 /uL (0-900); Monocytes Percent Auto 5.9 % (3-14); Neutrophils Absolute Auto 9200 /uL (1500-7000); Neutrophils Percent Auto 68.2 % (50-75); Platelet Count 403 X10^3/uL (150-400); Potassium 3.4 mmol/L (3.4-5.1); Red Blood Cell Count 4.25 X10^6/uL (4.0-5.2); Red Cell Distribution Width 13.8 % (11.6-14.8); Sodium 138 mmol/L (137-145); Total Protein 7.3 g/dL (6.3-8.2); White Blood Cell Count 13.5 X10^3/uL (4.5-11.0)
[2019-11-13] MEDS: TRIMETH/SULFA 160/800 PREPACK 1 BOTTLE MISC (01:18)
[2019-11-13] MEDS: ONDANSETRON 4 MG ODT PREPACK 1 BOTTLE MISC (01:18)
[2019-11-13 01:19] VITALS: BP 117/65; PULSE 84; RESP 17; O2SAT 99
== END 2019-11-13 01:18 | disposition home or self-care (01) ==
PROVIDERS: Emergency Provider Emergency Medicine; PCP Nurse Practitioner Family
DX: N20.0 Calculus of kidney (principal); N39.0 Urinary tract infection, site not specified
CPT/HCPCS: 36415; 80053; 81001; 81025; 83690; 85025; 87086; 96374; 99283; 99284; J2405

== ENCOUNTER → 2020-12-09 06:59 | Outpatient (CLI) | payer BC, SELFPAY ==
[2020-12-09 08:47] LABS: Add Manual Diff / Slide Review NO; Basophils Absolute Auto 100 /uL (0-100); Basophils Percent Auto 1.2 % (0-2); Eosinophils Absolute Auto 300 /uL (0-450); Eosinophils Percent Auto 3.5 % (2-4); Hematocrit 39.5 % (36-46); Hemoglobin 13.2 g/dL (12.0-16.0); Lymphocytes Absolute Auto 2200 /uL (1100-4500); Lymphocytes Percent Auto 25.2 % (25-40); Mean Corpuscular HGB Conc 33.4 % (30-36); Mean Corpuscular Hemoglobin 29.3 PG (26-34); Mean Corpuscular Volume 87.9 fL (80-100); Monocytes Absolute Auto 500 /uL (0-900); Monocytes Percent Auto 6.2 % (3-14); Neutrophils Absolute Auto 5500 /uL (1500-7000); Neutrophils Percent Auto 63.9 % (50-75); Platelet Count 394 X10^3/uL (150-400); Red Blood Cell Count 4.49 X10^6/uL (4.0-5.2); Red Cell Distribution Width 13.3 % (11.6-14.8); White Blood Cell Count 8.6 X10^3/uL (4.5-11.0)
[2020-12-09 09:13] LABS: Alanine Aminotransferase 21 IU/L (<35); Albumin 3.9 g/dL (3.5-5.0); Albumin Globulin Ratio 1.3 (1.0-2.8); Alkaline Phosphatase 58 U/L (38-126); Aspartate Aminotransferase 19 IU/L (14-36); BUN Creatinine Ratio 18.1 (6-22); Bilirubin Total 0.3 mg/dL (0.2-1.3); Blood Urea Nitrogen 13 mg/dL (7-17); Calcium 9.4 mg/dL (8.4-10.2); Carbon Dioxide 25 mmol/L (22-32); Chloride 107 mmol/L (98-107); Cholesterol 180 mg/dL (140-199); Estimated Glomerular Filt Rate > 60.0 mL/min (>60); Globulin 3.1 g/dL (1.7-4.1); Glucose 92 mg/dL (70-100); HDL Cholesterol 41 mg/dL (40-60); HEMOLYSIS < 15 (0-50); LDL Cholesterol Calculated 118 mg/dL (<100); Potassium 4.6 mmol/L (3.4-5.1); Sodium 136 mmol/L (137-145); Triglycerides 106 mg/dL (35-150)
[2020-12-09 09:34] LABS: Free T3, Triiodothyronine Free 4.43 pg/mL (2.77-5.27); Free T4, Direct Thyroxine 1.16 ng/dL (0.78-2.19)
[2020-12-09 09:48] LABS: Thyroid Stimulating Hormone 1.67 uIU/mL (0.47-4.68)
== END ==
PROVIDERS: PCP Internal Medicine; Referring Provider Internal Medicine; Visit Provider Internal Medicine
DX: R53.83 Other fatigue (principal); E78.6 Lipoprotein deficiency; Z68.41 Body mass index [BMI] 40.0-44.9, adult
CPT/HCPCS: 36415; 80053; 80061; 84439; 84443; 84481; 85025

== ENCOUNTER → 2022-01-04 10:07 | Outpatient (CLI) | payer BC, SELFPAY ==
--- NOTE | 2022-01-04 | DI.CT.S_ITS ---
PROCEDURE: CT KIDNEY URETER BLADDER (KUB) INDICATIONS: Calculus of kidney TECHNIQUE: Axial sections were acquired from the lung bases to the pubic symphysis. Coronal and sagittal reformats were performed. For radiation dose reduction, the following was used: automated exposure control, adjustment of mA and/or kV according to patient size. COMPARISON: None. FINDINGS: Image quality: Excellent. Lung bases: Unremarkable. Heart: No significant findings. URINARY: Right Kidney: No hydronephrosis. Punctate nephrolithiasis. Right Ureter: No hydroureter. Left Kidney: No hydronephrosis. Punctate nephrolithiasis versus concretions. 2 cm hypoattenuating lesion in the interpolar region, compatible with a cyst. Left Ureter: No hydroureter. Bladder: Normal wall thickness. No stones. ABDOMEN: Liver: Unremarkable. Gallbladder: Unremarkable. Biliary ducts: Unremarkable. Pancreas: Unremarkable. Spleen: Unremarkable. Adrenal Glands: Unremarkable. Stomach and Bowel: No evidence of intestinal obstruction or inflammatory change. Normal appendix. Peritoneum: No abnormal intraperitoneal fluid. No free air. Ventral Wall: Trace periumbilical fat containing hernia. Abdominal Nodes: No enlarged retroperitoneal or mesenteric lymph nodes. Vessels: Aorta and inferior vena cava are normal in size. PELVIS: Pelvic Organs: An intrauterine device is seen. Pelvic Nodes: Unremarkable. Miscellaneous: No inguinal hernias are seen. Bones: Unremarkable. IMPRESSION: 1. No CT evidence of obstructive uropathy. Dictated by: Milo Awad M.D. on 01/04/2022 at 10:31 Approved by: Milo Awad M.D. on 01/04/2022 at 10:36
== END ==
PROVIDERS: Referring Provider Nurse Practitioner Family; Visit Provider Nurse Practitioner Family
DX: N20.0 Calculus of kidney (principal)
CPT/HCPCS: 74176

== ENCOUNTER → 2022-03-11 08:05 | Outpatient (CLI) | payer BC, OTHER, SELFPAY ==
[2022-03-11 09:20] LABS: Add Manual Diff / Slide Review NO; Basophils Absolute Auto 0 /uL (0-100); Basophils Percent Auto 0.2 % (0-2); Eosinophils Absolute Auto 400 /uL (0-450); Eosinophils Percent Auto 3.1 % (2-4); Hematocrit 40.9 % (36-46); Hemoglobin 13.3 g/dL (12.0-16.0); Lymphocytes Absolute Auto 2400 /uL (1100-4500); Lymphocytes Percent Auto 21.2 % (25-40); Mean Corpuscular HGB Conc 32.5 % (30-36); Mean Corpuscular Hemoglobin 27.8 PG (26-34); Mean Corpuscular Volume 85.5 fL (80-100); Monocytes Absolute Auto 700 /uL (0-900); Monocytes Percent Auto 5.8 % (3-14); Neutrophils Absolute Auto 8000 /uL (1500-7000); Neutrophils Percent Auto 69.7 % (50-75); Platelet Count 437 X10^3/uL (150-400); Red Blood Cell Count 4.78 X10^6/uL (4.0-5.2); Red Cell Distribution Width 14.4 % (11.6-14.8); White Blood Cell Count 11.4 X10^3/uL (4.5-11.0)
[2022-03-11 10:04] LABS: INR 1.2 (0.9-1.3); Prothrombin Time 13.1 SECONDS (10.1-12.7)
[2022-03-11 10:06] LABS: PTT Partial Thromboplastin Tim 36 SECONDS (26.4-36.2)
[2022-03-11 10:11] LABS: HEMOLYSIS < 15 (0-50); Iron 77 ug/dL (37-170)
[2022-03-11 10:14] LABS: Alanine Aminotransferase 18 IU/L (<35); Albumin 4.2 g/dL (3.5-5.0); Albumin Globulin Ratio 1.4 (1.0-2.8); Alkaline Phosphatase 63 U/L (38-126); Aspartate Aminotransferase 21 IU/L (14-36); BUN Creatinine Ratio 15.6 (6-22); Bilirubin Total 0.5 mg/dL (0.2-1.3); Blood Urea Nitrogen 10 mg/dL (7-17); Calcium 9.4 mg/dL (8.4-10.2); Carbon Dioxide 25 mmol/L (22-32); Chloride 107 mmol/L (98-107); Cholesterol 174 mg/dL (140-199); Estimated Glomerular Filt Rate > 60 mL/min (>60); Globulin 2.9 g/dL (1.7-4.1); Glucose 92 mg/dL (70-100); HDL Cholesterol 30 mg/dL (40-60); HEMOLYSIS 26 (0-50); LDL Cholesterol Calculated 125 mg/dL (<100); Potassium 4.6 mmol/L (3.4-5.1); Sodium 140 mmol/L (137-145); Total Protein 7.1 g/dL (6.3-8.2); Triglycerides 93 mg/dL (35-150)
[2022-03-11 10:23] LABS: Percent Iron Saturation 24 % (15-50); Total Iron Binding Capacity 321 ug/dL (265-497); Transferrin 233 mg/dL (206-381)
[2022-03-11 10:30] LABS: Free T3, Triiodothyronine Free 3.92 pg/mL (2.77-5.27)
[2022-03-11 10:44] LABS: Thyroid Stimulating Hormone 1.56 uIU/mL (0.47-4.68)
[2022-03-11 10:52] LABS: Ferritin 49 ng/mL (6-137)
[2022-03-11 11:10] LABS: Vitamin D 25 Hydroxy (D3) 26.2 ng/mL (30.0-100.0)
[2022-03-11 11:23] LABS: Folate 10.7 ng/mL (2.76-20.0); Vitamin B12 433 pg/mL (239-931)
== END ==
PROVIDERS: Referring Provider Physician Assistant; Visit Provider Physician Assistant
DX: E63.9 Nutritional deficiency, unspecified (principal); K90.9 Intestinal malabsorption, unspecified; Z98.84 Bariatric surgery status
CPT/HCPCS: 36415; 80053; 80061; 82306; 82607; 82728; 82746; 83036; 83540; 83550; 84425; 84443; 84481; 85025; 85610; 85730

== ENCOUNTER → 2022-04-15 07:59 | Outpatient (CLI) | payer BC, OTHER, SELFPAY ==
[2022-04-15 10:38] LABS: COVID-19 CEPHEID PCR (VTM/NP) Negative (Negative)
== END ==
PROVIDERS: Referring Provider Family Medicine; Visit Provider Family Medicine
DX: Z20.822 Contact with and (suspected) exposure to COVID-19 (principal)
CPT/HCPCS: U0003; U0005

== ENCOUNTER 2022-08-25 09:54 | Emergency (ER) | payer BC, OTHER, SELFPAY ==
[2022-08-25] VITALS (7 sets, daily range): BP systolic 120–127; BP diastolic 60–69; PULSE 51–75; RESP 15; TEMP 36.7; O2SAT 93–100; BMI 39.4
--- NOTE | 2022-08-25 10:08 | DI.US.S_ITS ---
PROCEDURE: US ABDOMEN LIMITED INDICATIONS: RIGHT UPPER QUADRANT PAIN TECHNIQUE: Real-time scanning was performed of the abdominal and retroperitoneal organs, with image documentation. COMPARISON: None. FINDINGS: Liver: The liver is diffusely decreased in attenuation without focal mass lesion. Gallbladder: Sonolucent without cholelithiasis. No gallbladder wall thickening. No pericholecystic fluid or Carreon's sign. Common Bile Duct: 8.5 mm. Pancreas: Unremarkable as visualized IMPRESSION: 1. Dilated CBD 8.5 mm. Consider follow-up MRCP to evaluate for distal CBD stone Approved by: Ron Wynn M.D. on 08/25/2022 at 10:30
--- NOTE | 2022-08-25 10:23 | ED_ITS ---
HPI - Abdominal Pain General Chief Complaint: Abdominal Pain Stated Complaint: upper rt quad abd pain v/n Time Seen by Provider: 08/25/22 10:08 Source: patient Mode of arrival: Ambulatory History of Present Illness HPI narrative: Patient here for right upper quadrant pain and nausea. No fever chills no urinary complaints. Patient had gastric sleeve done by [facility] in [place] beginning of this month. She still has her gallbladder. She was informed that the procedure could cause gallbladder problems. Pain right up per quadrant started last night. She went to a libertarian and had pizza and cheese cake, these are foods she usually does not eat. Denies . Has history of IUD. has low sperm count. No recent illness. Pain is right upper quadrant and radiates to mid back. No shoulder pain no chest pain Related Data Home Medications Medication Instructions Recorded Confirmed venlafaxine 75 mg capsule,extended 75 mg PO DAILY 08/22/18 12/25/19 release 24 hr bupropion HCl 150 mg tablet,12 hr 450 mg PO DAILY 04/28/19 12/25/19 sustained-release (Wellbutrin SR) gabapentin 300 mg capsule 300 mg PO TID PRN 04/28/19 12/25/19 Previous Rx's Medication Instructions Recorded inhalational spacing device #1 ea 07/01/19 (Flexichamber spacer) albuterol sulfate 90 mcg/actuation 2 inhalation inhalation .COMPLEX 11/03/19 aerosol inhaler PRN shortness of breath or wheezing #8 grams ondansetron 4 mg disintegrating 4 mg PO Q8H PRN nausea and 11/13/19 tablet vomiting #10 tabs phentermine 37.5 mg tablet 37.5 mg PO BID #90 tabs 12/11/19 Allergies Allergy/AdvReac Type Severity Reaction Status Date / Time Iodinated Contrast Media Allergy Verified 08/25/22 10:06 Review of Systems Review of Systems Narrative: GENERAL: Denies chills, fatigue, malaise, fever, sweats. HEENT: Denies sinus pain, ear pain, sore throat RESPIRATORY: Denies dyspnea, cough CARDIOVASCULAR: Denies chest pain, palpitations GASTROINTESTINAL: Positive nausea, negative vomiting, positive abdominal pain : Denies dysuria, frequency, hematuria MUSCULOSKELETAL: denies muscle or bony pain SKIN: Denies rash, skin lesions NEUROLOGIC: Denies weakness, numbness ROS Unobtainable: All systems reviewed & are unremarkable except as noted in HPI and below Patient History Medical History Arthralgia of multiple joints Asthma Generalized anxiety disorder Herniated nucleus pulposus, C4-5 Lumbar facet arthropathy Lumbosacral spondylosis Paresthesia of upper extremity Sleep apnea Social History Smoking Status: Current some day smoker alcohol intake: current (rarely) substance use type: does not use Smoking Status: Current some day smoker tobacco type: vaping alcohol intake frequency: holidays/special occasions only Substance Use Type: does not use Exam Narrative Exam Narrative: GENERAL: in no distress, not toxic not dyspneic HEAD: Normocephalic. EYES: Pupils equal round No scleral icterus. ENT: Mucous membranes moist. NECK: Trachea midline. CARDIOVASCULAR: Regular rate and rhythm without murmurs RESPIRATORY: Clear to auscultation. Breath sounds equal bilaterally. No wheezes, rales, or rhonchi. GASTROINTESTINAL: Abdomen soft, mild right upper quadrant tenderness, positive Carreon sign, no CVA tenderness bowel sounds present no peritoneal signs EXTREMITIES: No gross deformities. BACK: No flank tenderness. NEURO: AOx4. SKIN: Warm and dry PSYCH: Not anxious, is cooperative Initial Vital Signs Initial Vital Signs: Vital Signs Temperature 98.1 F 08/25/22 10:00 Pulse Rate 66 08/25/22 10:00 Respiratory Rate 15 08/25/22 10:00 Blood Pressure 127/60 08/25/22 10:00 Pulse Oximetry 100 08/25/22 10:00 Oxygen Delivery Method 08/25/22 10:00 Course Course Course Narrative: No new issues during course of stay Orders Ordered: Discontinued Medications Ondansetron HCl (Ondansetron 4 Mg/2 Ml Inj) 4 mg IV NOW ONE Stop: 08/25/22 11:43 Last Admin: 08/25/22 12:16 Dose: Not Given Documented By: TATIANA Reevaluation(s) Reevaluation #1: PAIN-FREE AT THIS TIME. REVIEWED RESULTS OF ULTRASOUND AND LABORATORY STUDIES WITH PATIENT. CBD was dilated on ultrasound however blood work reassuring. MRCP was ordered but patient states she prefers to have that outpatient. I am waiting for call back from Dr. Morrell, general surgeon for likely follow-up office appointment and outpatient MRCP Time: 14:25 Reevaluation #2: Patient agrees with treatment plan and follow up with Dr. Morrell. Pain-free at this time. Consultations Consultation #1: Spoke with general surgery, Dr. Morrell, at this time laboratory studies are reassuring. Ultrasound as well other than CBD. Appropriate for follow-up in his office and outpatient MRCP Time: 14:48 Vital Signs Vital signs: Vital Signs - 8 hr 08/25/22 10:00 08/25/22 10:41 08/25/22 11:00 Temperature 98.1 F Pulse Rate 66 57 L 61 Respiratory Rate 15 Blood Pressure 127/60 Pulse Oximetry 100 100 100 Oxygen Delivery Method Room Air Room Air 08/25/22 11:30 08/25/22 13:47 08/25/22 13:49 Temperature Pulse Rate 58 L 75 62 Respiratory Rate Blood Pressure Pulse Oximetry 100 93 100 Oxygen Delivery Method Room Air 08/25/22 13:49 08/25/22 14:00 08/25/22 14:00 Temperature Pulse Rate 51 L Respiratory Rate Blood Pressure 120/69 126/63 Pulse Oximetry 100 Oxygen Delivery Method MDM - Abdominal Pain Differential Diagnosis Differential diagnosis: Likely abdominal pain, acute appendicitis, calculus of kidney, constipation, diverticulitis, pancreatitis and small bowel obstruction Lab Data Result diagrams: 08/25/22 10:37 08/25/22 10:37 Labs: Lab Results 08/25/22 08/25/22 Range/Units 10:37 10:37 WBC 10.5 (4.5-11.0) X10^3/uL RBC 4.47 (4.0-5.2) X10^6/uL Hgb 12.6 (12.0-16.0) g/dL Hct 37.8 (36-46) % MCV 84.6 (80-100) fL MCH 28.2 (26-34) PG MCHC 33.4 (30-36) % RDW 15.1 H (11.6-14.8) % Plt Count 420 H (150-400) X10^3/uL Neut % (Auto) 64.6 (50-75) % Lymph % (Auto) 24.0 L (25-40) % [place] % (Auto) 6.1 (3-14) % Eos % (Auto) 4.4 H (2-4) % Baso % (Auto) 0.9 (0-2) % Neut # (Auto) 6800 (5739-6721) /uL Lymph # (Auto) 2500 (4593-8848) /uL [place] # (Auto) 600 (0-900) /uL Eos # (Auto) 500 H (0-450) /uL Baso # (Auto) 100 (0-100) /uL Sodium 139 (137-145) mmol/L Potassium 4.1 (3.4-5.1) mmol/L Chloride 106 (98-107) mmol/L Carbon Dioxide 22 (22-32) mmol/L BUN 12 (7-17) mg/dL Creatinine 0.65 (0.52-1.04) mg/dL Estimated GFR > 60 (>60) mL/min BUN/Creatinine Ratio 18.5 (6-22) Glucose 83 (70-100) mg/dL Calcium 8.9 (8.4-10.2) mg/dL Total Bilirubin 0.3 (0.2-1.3) mg/dL AST 27 (14-36) IU/L ALT 33 (<35) IU/L Alkaline Phosphatase 82 (38-126) U/L Total Protein 7.2 (6.3-8.2) g/dL Albumin 3.8 (3.5-5.0) g/dL Globulin 3.4 (1.7-4.1) g/dL Albumin/Globulin Ratio 1.1 (1.0-2.8) Lipase 33 (23-300) U/L Point of care testing: Point of Care Testing Test Results Negative Urine Dip Bedside Urine Glucose Negative Bedside Urine Bilirubin - Negative Bedside Urine Ketone - Negative Urine Specific [place] 1.015 Bedside Urine Occult Blood - Negative Bedside Urine pH 7.5 Bedside Urine Protein - Negative Bedside Urine Urobilinogen - Negative Bedside Urine Nitrite - Negative Bedside Urine Leukocytes - Negative Esterase Imaging Data US - abdomen: Radiologist's Impression: [address] [address] Ultrasound Report Signed Patient: Vanita Douglass MR#: [id number] : 1990 Acct:[id number] Age/Sex: 32 / F Date of Service: 08/25/22 Loc: ED Accession Number: [id number] ?? Procedure: US abdomen limited Ordering Provider: Chito Prado MD PROCEDURE:? US ABDOMEN LIMITED ? INDICATIONS:? RIGHT UPPER QUADRANT PAIN ? TECHNIQUE:? Real-time scanning was performed of the abdominal and retroperitoneal organs, with image documentation.? ? COMPARISON:? None. ? FINDINGS: ? Liver: The liver is diffusely decreased in attenuation without focal mass lesion. ? Gallbladder:? Sonolucent without cholelithiasis.? No gallbladder wall thickening. No pericholecystic fluid or Carreon's sign. ? Common Bile Duct:? 8.5 mm. ? Pancreas:? Unremarkable as visualized ? ? ? IMPRESSION: ? 1. Dilated CBD 8.5 mm.? Consider follow-up MRCP to evaluate for distal CBD stone ? Approved by: Ron Wynn M.D. on 08/25/2022 at 10:30? MDM Narrative Medical decision making narrative: Appropriate for discharge and follow up with general surgeon and possible outpatient MRCP. I did review with general surgery and agrees for discharge home and follow up in the office and possible outpatient MRCP. Return precautions reviewed patient.. Exam and blood work otherwise reassuring as well as ultrasound. Discharge Plan Departure Patient Disposition: Home Clinical Impression: Abdominal pain Activity Restrictions/Additional Instructions: Return if worsening questions or concerns. Call provided general surgery office with Dr. Morrell or Sunday for office appointment for re-evaluation and to schedule outpatient MRCP of your liver and gallbladder. No fried fatty greasy foods. Return if any questions or concerns or worsening symptoms. Prescriptions: No Action phentermine 37.5 mg tablet 37.5 mg PO BID Qty: 90 1RF Rx Instructions: Take 1 tablet 30 minutes before breakfast and 0.5 tablet 1-2 hours after lunch bupropion HCl [Wellbutrin SR] 150 mg tablet sustained-release 12 hr 450 mg PO DAILY gabapentin 300 mg capsule 300 mg PO TID PRN albuterol sulfate 90 mcg/actuation HFA aerosol inhaler 2 inhalation INHALATION .COMPLEX PRN (Reason: shortness of breath or wheezing) Qty: 8 2RF Rx Instructions: 2 inh INHALATION 5-10 minutes prior to exercise and every 4-6h PRN; (DME) Flexichamber spacer See Dose Instructions .ROUTE .MEDSUPPLY Qty: 1 0RF Dose Instruction: As directed Rx Instructions: As directed ondansetron 4 mg tablet,disintegrating 4 mg PO Q8H PRN (Reason: nausea and vomiting) Qty: 10 0RF venlafaxine 75 mg capsule,extended release 24hr 75 mg PO DAILY Referrals: Rangel Morrell MD [Physician] - Vilma Charles MD [Primary Care Provider] - Stand Alone Forms: Work Release Note Visit Report Forms: Patient Portal/API
[2022-08-25 10:52] LABS: Add Manual Diff / Slide Review NO; Basophils Absolute Auto 100 /uL (0-100); Basophils Percent Auto 0.9 % (0-2); Eosinophils Absolute Auto 500 /uL (0-450); Eosinophils Percent Auto 4.4 % (2-4); Hematocrit 37.8 % (36-46); Hemoglobin 12.6 g/dL (12.0-16.0); Lymphocytes Absolute Auto 2500 /uL (1100-4500); Mean Corpuscular HGB Conc 33.4 % (30-36); Mean Corpuscular Hemoglobin 28.2 PG (26-34); Mean Corpuscular Volume 84.6 fL (80-100); Monocytes Absolute Auto 600 /uL (0-900); Monocytes Percent Auto 6.1 % (3-14); Neutrophils Absolute Auto 6800 /uL (1500-7000); Neutrophils Percent Auto 64.6 % (50-75); Platelet Count 420 X10^3/uL (150-400); Red Blood Cell Count 4.47 X10^6/uL (4.0-5.2); Red Cell Distribution Width 15.1 % (11.6-14.8); White Blood Cell Count 10.5 X10^3/uL (4.5-11.0)
[2022-08-25 14:09] LABS: Alanine Aminotransferase 33 IU/L (<35); Albumin 3.8 g/dL (3.5-5.0); Albumin Globulin Ratio 1.1 (1.0-2.8); Alkaline Phosphatase 82 U/L (38-126); Aspartate Aminotransferase 27 IU/L (14-36); BUN Creatinine Ratio 18.5 (6-22); Bilirubin Total 0.3 mg/dL (0.2-1.3); Blood Urea Nitrogen 12 mg/dL (7-17); Calcium 8.9 mg/dL (8.4-10.2); Carbon Dioxide 22 mmol/L (22-32); Chloride 106 mmol/L (98-107); Estimated Glomerular Filt Rate > 60 mL/min (>60); Globulin 3.4 g/dL (1.7-4.1); Glucose 83 mg/dL (70-100); HEMOLYSIS < 15 (0-50); Lipase 33 U/L (23-300); Potassium 4.1 mmol/L (3.4-5.1); Sodium 139 mmol/L (137-145); Total Protein 7.2 g/dL (6.3-8.2)
== END 2022-08-25 14:52 | disposition home or self-care (01) ==
PROVIDERS: Emergency Provider Emergency Medicine; PCP Family Medicine
DX: R10.11 Right upper quadrant pain (principal)
CPT/HCPCS: 36415; 76705; 80053; 81003; 81025; 83690; 85025; 99284

== ENCOUNTER → 2022-09-27 09:39 | Outpatient (CLI) | payer BC, OTHER, SELFPAY ==
--- NOTE | 2022-09-27 | DI.US.S_ITS ---
PROCEDURE: US ABDOMEN LIMITED INDICATIONS: UPPER ABDOMEN PAIN TECHNIQUE: Real-time focused scanning was performed of the abdomen, with image documentation. COMPARISON: [facility], US, US ABDOMEN LIMITED, 08/25/2022, 10:20. FINDINGS: Liver measures 16.5 centimeters. Overall echotexture is normal. Gallbladder is within normal limits. The CBD measures up to 6 millimeters which is mildly dilated for age. Previous measurement was about 8-9 millimeters. The pancreas is not well visualized. Technically limited study due to large body habitus. IMPRESSION: Normal appearance of the gallbladder sonographically. Mildly dilated CBD for patient's age. Depending on clinical context, consider further evaluation with MRCP to further evaluate the biliary tree or nuclear medicine HIDA scan for gallbladder ejection fraction. Dictated by: Paul Hernandez M.D. on 09/27/2022 at 10:18 Approved by: Paul Hernandez M.D. on 09/27/2022 at 10:20
== END ==
PROVIDERS: PCP Family Medicine; Referring Provider Surgery; Visit Provider Surgery
DX: R10.10 Upper abdominal pain, unspecified (principal)
CPT/HCPCS: 76705

== ENCOUNTER → 2022-10-11 07:03 | Outpatient (CLI) | payer BC, OTHER, SELFPAY ==
[2022-10-11 08:02] LABS: Add Manual Diff / Slide Review NO; Basophils Absolute Auto 100 /uL (0-100); Basophils Percent Auto 0.9 % (0-2); Eosinophils Absolute Auto 200 /uL (0-450); Eosinophils Percent Auto 2.4 % (2-4); Hematocrit 39.5 % (36-46); Lymphocytes Absolute Auto 2200 /uL (1100-4500); Lymphocytes Percent Auto 25.6 % (25-40); Mean Corpuscular HGB Conc 32.9 % (30-36); Mean Corpuscular Hemoglobin 28.3 PG (26-34); Mean Corpuscular Volume 86.2 fL (80-100); Monocytes Absolute Auto 400 /uL (0-900); Monocytes Percent Auto 4.7 % (3-14); Neutrophils Absolute Auto 5600 /uL (1500-7000); Neutrophils Percent Auto 66.4 % (50-75); Platelet Count 400 X10^3/uL (150-400); Red Blood Cell Count 4.59 X10^6/uL (4.0-5.2); Red Cell Distribution Width 14.3 % (11.6-14.8); White Blood Cell Count 8.5 X10^3/uL (4.5-11.0)
[2022-10-11 08:05] LABS: Hemoglobin A1C% w Est Avg Glu 5.2 % (4.0-6.0)
[2022-10-11 08:13] LABS: Iron 107 ug/dL (37-170)
[2022-10-11 08:18] LABS: Alanine Aminotransferase 27 IU/L (<35); Albumin 3.9 g/dL (3.5-5.0); Albumin Globulin Ratio 1.3 (1.0-2.8); Alkaline Phosphatase 83 U/L (38-126); Aspartate Aminotransferase 18 IU/L (14-36); BUN Creatinine Ratio 17.9 (6-22); Bilirubin Total 0.4 mg/dL (0.2-1.3); Blood Urea Nitrogen 12 mg/dL (7-17); Calcium 9.3 mg/dL (8.4-10.2); Carbon Dioxide 24 mmol/L (22-32); Chloride 105 mmol/L (98-107); Cholesterol 178 mg/dL (140-199); Estimated Glomerular Filt Rate > 60 mL/min (>60); Glucose 81 mg/dL (70-100); HDL Cholesterol 29 mg/dL (40-60); HEMOLYSIS < 15 (0-50); LDL Cholesterol Calculated 130 mg/dL (<100); Potassium 4.4 mmol/L (3.4-5.1); Sodium 139 mmol/L (137-145); Total Protein 6.9 g/dL (6.3-8.2); Triglycerides 96 mg/dL (35-150)
[2022-10-11 08:25] LABS: Total Iron Binding Capacity 286 ug/dL (265-497)
[2022-10-11 08:50] LABS: Thyroid Stimulating Hormone 1.62 uIU/mL (0.47-4.68)
[2022-10-11 08:53] LABS: Ferritin 70 ng/mL (6-137)
[2022-10-11 09:25] LABS: Folate > 20.0 ng/mL (2.76-20.0); Vitamin B12 840 pg/mL (239-931)
[2022-10-17 09:48] LABS: Vitamin B1 181.8 nmol/L (66.5-200.0)
== END ==
PROVIDERS: PCP Family Medicine; Referring Provider Nurse Practitioner Acute Care; Visit Provider Nurse Practitioner Acute Care
DX: E63.9 Nutritional deficiency, unspecified (principal); K90.9 Intestinal malabsorption, unspecified; R73.03 Prediabetes; Z98.84 Bariatric surgery status
CPT/HCPCS: 36415; 80053; 80061; 82306; 82607; 82728; 82746; 83036; 83540; 83550; 84425; 84443; 85025

== ENCOUNTER → 2023-03-23 08:03 | Outpatient (CLI) | payer BC, OTHER, SELFPAY ==
[2023-03-23 09:19] LABS: Add Manual Diff / Slide Review NO; Basophils Absolute Auto 100 /uL (0-100); Basophils Percent Auto 1.1 % (0-2); Eosinophils Absolute Auto 200 /uL (0-450); Eosinophils Percent Auto 2.8 % (2-4); Hematocrit 37.9 % (36-46); Hemoglobin 12.9 g/dL (12.0-16.0); Lymphocytes Absolute Auto 2300 /uL (1100-4500); Lymphocytes Percent Auto 30.3 % (25-40); Mean Corpuscular HGB Conc 34.1 % (30-36); Mean Corpuscular Hemoglobin 29.8 PG (26-34); Mean Corpuscular Volume 87.4 fL (80-100); Monocytes Absolute Auto 400 /uL (0-900); Monocytes Percent Auto 5.5 % (3-14); Neutrophils Absolute Auto 4600 /uL (1500-7000); Neutrophils Percent Auto 60.3 % (50-75); Platelet Count 375 X10^3/uL (150-400); Red Blood Cell Count 4.33 X10^6/uL (4.0-5.2); Red Cell Distribution Width 13.5 % (11.6-14.8); White Blood Cell Count 7.6 X10^3/uL (4.5-11.0)
[2023-03-23 10:02] LABS: HEMOLYSIS < 15 (0-50)
[2023-03-23 10:14] LABS: HEMOLYSIS < 15 (0-50)
[2023-03-23 10:16] LABS: Alanine Aminotransferase 24 IU/L (<35); Albumin 3.8 g/dL (3.5-5.0); Albumin Globulin Ratio 1.4 (1.0-2.8); Alkaline Phosphatase 71 U/L (38-126); Aspartate Aminotransferase 19 IU/L (14-36); Bilirubin Total 0.6 mg/dL (0.2-1.3); Blood Urea Nitrogen 9 mg/dL (7-17); Calcium 9.1 mg/dL (8.4-10.2); Carbon Dioxide 23 mmol/L (22-32); Chloride 106 mmol/L (98-107); Cholesterol 182 mg/dL (140-199); Estimated Glomerular Filt Rate > 60 mL/min (>60); Globulin 2.8 g/dL (1.7-4.1); Glucose 76 mg/dL (70-100); HDL Cholesterol 38 mg/dL (40-60); LDL Cholesterol Calculated 127 mg/dL (<100); Potassium 4.7 mmol/L (3.4-5.1); Sodium 136 mmol/L (137-145); Total Protein 6.6 g/dL (6.3-8.2); Triglycerides 86 mg/dL (35-150)
[2023-03-23 10:29] LABS: Vitamin D 25 Hydroxy (D3) 38.4 ng/mL (30.0-100.0)
[2023-03-23 10:43] LABS: Ferritin 58 ng/mL (6-137)
[2023-03-23 10:44] LABS: Thyroid Stimulating Hormone 1.72 uIU/mL (0.47-4.68)
[2023-03-23 14:35] LABS: Iron 128 ug/dL (37-170)
[2023-03-23 14:48] LABS: Percent Iron Saturation 44 % (15-50); Total Iron Binding Capacity 294 ug/dL (265-497); Transferrin 222 mg/dL (206-381)
[2023-03-23 15:39] LABS: Folate > 20.0 ng/mL (2.76-20.0); Vitamin B12 850 pg/mL (239-931)
[2023-03-24 05:17] LABS: x Labcorp Estim. Avg Glu (eAG) 103 mg/dL (.); x Labcorp Hemoglobin A1c 5.2 % (4.8-5.6)
[2023-04-05 14:58] LABS: Vitamin B6 35.6 ug/L (3.4-65.2)
== END ==
PROVIDERS: PCP Family Medicine; Referring Provider Nurse Practitioner Acute Care; Visit Provider Nurse Practitioner Acute Care
DX: E63.9 Nutritional deficiency, unspecified (principal); K90.9 Intestinal malabsorption, unspecified; Z98.84 Bariatric surgery status
CPT/HCPCS: 36415; 80053; 80061; 82306; 82607; 82728; 82746; 83036; 83540; 83550; 84207; 84443; 85025

== ENCOUNTER 2025-06-20 04:32 | Emergency (ER) | payer BC, SELFPAY ==
[2025-06-20 04:41] VITALS: BP 149/91; PULSE 80; RESP 22; TEMP 36.9; O2SAT 98; BMI 37.1
[2025-06-20 05:00] VITALS: BP 125/75; PULSE 74; O2SAT 98
[2025-06-20 05:01] LABS: Culture Indicated Urine Cult Not Indicated
--- NOTE | 2025-06-20 05:01 | ED_ITS ---
HPI - General Adult General Chief complaint: Abdominal Pain Stated complaint: Pelvic Pain Time Seen by Provider: 06/20/25 04:35 Source: patient Mode of arrival: Ambulatory History of Present Illness HPI narrative: 34-year-old female complains of pelvic pain since 8:00 p.m. last night onset after intercourse with . Scant vaginal bleeding. No fevers or chills. No nausea or vomiting. No blood thinners taken. Some dysuria frequency of urination. No current or recent antibiotics for a urinary infection or pelvic or other infections. Onset (ago): minute(s) Related Data Home Medications ?Medication ?Instructions ?Recorded ?Confirmed venlafaxine 75 mg capsule,extended 75 mg PO DAILY 07/2812/25/19 release 24 hr bupropion HCl 150 mg tablet,12 hr 450 mg PO DAILY 02/1112/25/19 sustained-release (Wellbutrin SR) gabapentin 300 mg capsule 300 mg PO TID PRN 04/28/19 0 12/25/19 Previous Rx's ?Medication ?Instructions ?Recorded inhalational spacing device #1 ea 07/01/19 (Flexichamber spacer) albuterol sulfate 90 mcg/actuation 2 inhalation inhala tion .COMPLEX 11/03/19 aerosol inhaler PRN shortness of breath or wheezing #8 grams ondansetron 4 mg disintegrating 4 mg PO Q8H PRN nausea and 11/13/19 tablet vomiting #10 tabs phentermine 37.5 mg tablet 37.5 mg PO BID #90 tabs Allergies Allergy/AdvReac Type Severity Reaction Status Date / Time Iodinated Contrast Media Allergy Verified 10/26/24 16:57 Patient History Medical History Arthralgia of multiple joints Asthma Generalized anxiety disorder Herniated nucleus pulposus, C4-5 Lumbar facet arthropathy Lumbosacral spondylosis Paresthesia of upper extremity Sleep apnea Social History alcohol intake: current (rarely) substance use type: does not use tobacco type: vaping alcohol intake frequency: holidays/special occasions only Exam Narrative Exam Narrative: GENERAL: Well-developed patient, in mild distress. HEAD: Atraumatic. Normocephalic. EYES: Pupils equal round and reactive. Extraocular motions intact. No scleral icterus. No injection or drainage. ENT: Nose without bleeding, purulent drainage. Throat without erythema, tonsillar hypertrophy or exudate. Airway patent. NECK: Trachea midline. Non tender CARDIOVASCULAR: Regular rate and rhythm without murmurs, gallops, or rubs. RESPIRATORY: Clear to auscultation. Breath sounds equal bilaterally. No wheezes, rales, or rhonchi. GASTROINTESTINAL: Obese, some suprapubic area mild tenderness, bowel tones unremarkable, nondistended. EXTREMITIES: No edema or joint tenderness. NEURO: AOx3. Motor functions grossly nonfocal. SKIN: No rash or erythema of visible areas Initial Vital Signs Initial Vital Signs: Vital Signs Temperature 98.5 F 06/20/25 04:41 Pulse Rate 80 06/20/25 04:41 Respiratory Rate 22 06/20/25 04:41 Blood Pressure 149/91 H 06/20/25 04:41 Pulse Oximetry 98 06/20/25 04:41 Oxygen Delivery Method Room Air 06/20/25 04:41 Course Orders Ordered: Discontinued Medications Hydrocodone Bitart/Acetaminophen (Hydrocodone/Acet 5/325 Prepack) 1 bottle MISC DIRECTED ONE Stop: 06/20/25 07:17 Last Admin: 06/20/25 07:31 Dose: 1 bottle Documented By: GADIEL Hydromorphone HCl (Hydromorphone Hcl 0.5 Mg/0.5 Ml Syringe) 0.5 mg IV NOW ONE Stop: 06/20/25 05:53 Last Admin: 06/20/25 05:56 Dose: 0.5 mg Documented By: JENNIFER Ketorolac Tromethamine (Ketorolac 30 Mg/Ml Vial) 15 mg IV NOW ONE Stop: 06/20/25 05:05 Last Admin: 06/20/25 05:07 Dose: 15 mg Documented By: JENNIFER Ondansetron HCl (Ondansetron 4 Mg/2 Ml Inj) 4 mg IV NOW ONE Stop: 06/20/25 05:53 Last Admin: 06/20/25 05:56 Dose: 4 mg Documented By: JENNIFER Vital Signs Vital signs: Vital Signs - 8 hr 06/20/25 07:33 Temperature 98.2 F Pulse Rate 59 L Respiratory Rate 16 Blood Pressure 115/67 Pulse Oximetry 98 Oxygen Delivery Method Room Air Medical Decision Making Lab Data Lab results reviewed: Yes I reviewed the patient's lab results. Lab results narrative: White blood cell count 9700, hemoglobin 13.5, platelets adequate. Glucose 84. Normal renal function. Serum CO2 21 mildly decreased, normal electrolytes. Liver functions and lipase normal. Urinalysis without obvious infection. Urine hCG negative. Urine chlamydia edge/GC pending. 06/20/25 04:54 06/20/25 04:54 Labs: Lab Results 06/20/25 06/20/25 Range/Units 04:40 04:54 WBC 9.7 (4.5-11.0) X10^3/uL RBC 4.38 (4.0-5.2) X10^6/uL Hgb 13.5 (12.0-16.0) g/dL Hct 38.6 (36-46) % MCV 88.0 (80-100) fL MCH 30.7 (26-34) PG MCHC 34.9 (30-36) % RDW 13.3 (11.6-14.8) % Plt Count 343 (150-400) X10^3/uL Neut % (Auto) 61.3 (50-75) % Lymph % (Auto) 26.7 (25-40) % [place] % (Auto) 7.4 (3-14) % Eos % (Auto) 3.1 (2-4) % Baso % (Auto) 1.5 (0-2) % Neut # (Auto) 5900 (7883-6363) /uL Lymph # (Auto) 2600 (0172-1260) /uL [place] # (Auto) 700 (0-900) /uL Eos # (Auto) 300 (0-450) /uL Baso # (Auto) 100 (0-100) /uL Sodium 138 (137-145) mmol/L Potassium 4.0 (3.4-5.1) mmol/L Chloride 108 H (98-107) mmol/L Carbon Dioxide 21 L (22-32) mmol/L BUN 14 (7-17) mg/dL Creatinine 0.70 (0.52-1.04) mg/dL Estimated GFR > 60 (>60) mL/min BUN/Creatinine Ratio 20.0 (6-22) Glucose 84 (70-99) mg/dL Calcium 9.1 (8.4-10.2) mg/dL Total Bilirubin 0.6 (0.2-1.3) mg/dL AST 24 (14-36) IU/L ALT 21 (<35) IU/L Alkaline Phosphatase 64 (38-126) U/L Total Protein 7.2 (6.3-8.2) g/dL Albumin 4.2 (3.5-5.0) g/dL Globulin 3.0 (1.7-4.1) g/dL Albumin/Globulin Ratio 1.4 (1.0-2.8) Lipase 44 (23-300) U/L Urine RBC 5-10/hpf H (0-5/HPF) Urine WBC None seen (0-5/HPF) Ur Squamous Epith Cells 1-5 /hpf (0-5/HPF) Urine Bacteria None seen (None) Ur Culture Indicated? Cult not indicated Vol Urine Centrifuged 10ml (spun) Ur Chlamydia DNA (PCR) Not detected N gonorrhoeae DNA (PCR) Not detected Point of Care Testing Test Results Negative Urine Dip Bedside Urine Glucose Negative Bedside Urine Bilirubin - Negative Bedside Urine Ketone - Negative Urine Specific [place] 1.015 Bedside Urine Occult Blood ++ Bedside Urine pH 6.5 Bedside Urine Protein - Negative Bedside Urine Urobilinogen - Negative Bedside Urine Nitrite - Negative Bedside Urine Leukocytes - Negative Esterase Point of care testing: Point of Care Testing Test Results Negative Urine Dip Bedside Urine Glucose Negative Bedside Urine Bilirubin - Negative Bedside Urine Ketone - Negative Urine Specific [place] 1.015 Bedside Urine Occult Blood ++ Bedside Urine pH 6.5 Bedside Urine Protein - Negative Bedside Urine Urobilinogen - Negative Bedside Urine Nitrite - Negative Bedside Urine Leukocytes - Negative Esterase MDM Narrative Medical decision making narrative: 34-year-old female with postcoital pelvic suprapubic area discomfort after intercourse with her last night, afebrile, sirs screen negative. Abdominal exam nonrigid. Screening labs pending. Patient uncomfortable appearing, offered opiate pain medication, declined, but will take IV Toradol which has been ordered. Keep NPO. Urine hCG negative. Urine dip negative. Serum studies pending. Pelvic ultrasound ordered. Lab data: White blood cell count 9700, hemoglobin 13.5, platelets adequate. Glucose 84. Normal renal function. Serum CO2 21 mildly decreased, normal electrolytes. Liver functions and lipase normal. Urinalysis without obvious infection. Urine hCG negative. Urine chlamydia edge/GC negative. Pelvic ultrasound verbal sono tech report, IUD in place, no obvious fluid, no acute inflammatory changes, ovaries not visualized. No blood noted on endovaginal probe. Await Radiology report. Still having significant pain after Toradol, now consents to IV opiate, with antinausea medication, IV Dilaudid/Zofran. Keep NPO. History of contrast allergy. CT abdomen and pelvis noncontrast study ordered. Ultrasound pelvis report. Impressions: ?Uterine fibroids. IUD position unremarkable. You ovaries are not visualized not assessed. ? See tele radiology report. In text there are mentioned of multiple uterine fibroids, largest is posterior position midline, 1.8 x 2[address] abdomen and pelvis. Impressions: ?No nephrolithiasis or urinary tract obstruction demonstrated. Post gastric sleeve probable renal cortical cysts on the left. No radiopaque gallstones. Normal appendix. ? See tele radiology report. Possible mechanical irritation by history of pain after but not during intercourse. No injurious for inflammatory patterns noted on US/CT imaging. Ovaries not visualized, but seems unlikely to have ovarian torsion after intercourse. Diagnosis would have to be pursued likely with direct visualization/laparoscopy, patient does not want to have any surgical consultation at this time. 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 Urine GC/chlamydia noted negative. Home pack hydrocodone/acetaminophen. She has ondansetron ODT to use if needed for nausea control. Discharged home with family. Return precautions discussed. Discharge Plan Departure Patient Disposition: Home Clinical Impression: Abdominal pain, Uterine fibroid Activity Restrictions/Additional Instructions: Lower abdominal pain after intercourse with . No ongoing vaginal bleeding. Scant vaginal bleeding initially. Pelvic ultrasound done, no acute changes noted although with the ovaries were not directly visualized, no blood on and no vaginal probe noted. Uterine fibroids were noted but were fairly small, those can be a source of pain but they usually or larger in size when they are more symptomatic. IUD in good position. Screening labs unremarkable. Urine GC chlamydia was also negative. Consider gynecology consultation. CT abdomen and pelvis additionally performed, no perforation or free air or inflammatory changes. IV pain control medications given. You have ondansetron to use at home. Home pack of hydrocodone/acetaminophen to use if needed. Follow up with your [facility] rigging and controls aircraft mechanic Sunday. Return to this/nearest emergency department for any change worsening symptoms or any concerns prior. Contact clinic information also provided for local Gynecology Dr. Salazar, if you are not able to make arrangements you with your [facility] rigging and controls aircraft mechanic. Prescriptions: No Action phentermine 37.5 mg tablet 37.5 mg PO BID Qty: 90 1RF Rx Instructions: Take 1 tablet 30 minutes before breakfast and 0.5 tablet 1-2 hours after lunch bupropion HCl [Wellbutrin SR] 150 mg tablet sustained-release 12 hr 450 mg PO DAILY gabapentin 300 mg capsule 300 mg PO TID PRN albuterol sulfate 90 mcg/actuation HFA aerosol inhaler 2 inhalation INHALATION .COMPLEX PRN (Reason: shortness of breath or wheezing) Qty: 8 2RF Rx Instructions: 2 inh INHALATION 5-10 minutes prior to exercise and every 4-6h PRN; (DME) Flexichamber spacer See Dose Instructions .ROUTE .MEDSUPPLY Qty: 1 0RF Dose Instruction: As directed Rx Instructions: As directed ondansetron 4 mg tablet,disintegrating 4 mg PO Q8H PRN (Reason: nausea and vomiting) Qty: 10 0RF venlafaxine 75 mg capsule,extended release 24hr 75 mg PO DAILY Referrals: Vilma Charles MD [Primary Care Provider, Family Practice] Yohan Salazar MD [Physician, HOSPITAL ADMITTING CLERK] Stand Alone Forms: Patient Portal/API, Work Release Note
[2025-06-20 05:02] LABS: Add Manual Diff / Slide Review NO; Hematocrit 38.6 % (36-46); Hemoglobin 13.5 g/dL (12.0-16.0); Lymphocytes Absolute Auto 2600 /uL (1100-4500); Mean Corpuscular HGB Conc 34.9 % (30-36); Mean Corpuscular Hemoglobin 30.7 PG (26-34); Mean Corpuscular Volume 88.0 fL (80-100); Platelet Count 343 X10^3/uL (150-400)
--- NOTE | 2025-06-20 05:05 | DI.US.S_ITS ---
PROCEDURE: US PELVIC COMPLETE INDICATIONS: post-coital pelvic pain, hx IUD, hcg neg TECHNIQUE: Real-time scanning was performed of the pelvic organs, with image documentation. Additional endovaginal scanning was necessary due to incomplete visualization of the adnexal and endometrial structures by transabdominal scanning. COMPARISON: None. FINDINGS: Uterus: Uterus is anteverted and normal in size at 6.8 x 4.3 x 4.1 cm. The myometrium is homogeneous. The endometrium measures 4 mm mm combined thickness. Several uterine fibroids, largest posterior, midline measures 2.2 cm. Intrauterine device in good position. Ovaries: Nonvisualized Other: No pathologic free abdominal or pelvic fluid. IMPRESSION: Uterine fibroids. IUD in good position. Note: This final report is concordant with the preliminary after-hours interpretation provided by [facility] [facility] [facility], [facility] [facility] Approved by: Ron Wynn M.D. on 06/20/2025 at 9:03
[2025-06-20] MEDS: KETOROLAC 30 MG/ML VIAL 15 MG IV (05:07)
[2025-06-20 05:22] LABS: Alanine Aminotransferase 21 IU/L (<35); Albumin 4.2 g/dL (3.5-5.0); Albumin Globulin Ratio 1.4 (1.0-2.8); Alkaline Phosphatase 64 U/L (38-126); Blood Urea Nitrogen 14 mg/dL (7-17); Calcium 9.1 mg/dL (8.4-10.2); Carbon Dioxide 21 mmol/L (22-32); Chloride 108 mmol/L (98-107); Estimated Glomerular Filt Rate > 60 mL/min (>60); Globulin 3.0 g/dL (1.7-4.1); Glucose 84 mg/dL (70-99); HEMOLYSIS < 15 (0-50); Lipase 44 U/L (23-300); Potassium 4.0 mmol/L (3.4-5.1); Sodium 138 mmol/L (137-145); Total Protein 7.2 g/dL (6.3-8.2)
--- NOTE | 2025-06-20 05:29 | PC.NURSE ---
US at bedside
--- NOTE | 2025-06-20 05:51 | DI.CT.S_ITS ---
PROCEDURE: CT ABDOMEN PELVIS WO CON INDICATIONS: lower abdominal pain TECHNIQUE: CT of the abdomen and pelvis was obtained without intravenous contrast. Coronal and sagittal reformats were performed. For radiation dose reduction, the following was used: automated exposure control, adjustment of mA and/or kV according to patient size. COMPARISON: None. FINDINGS: Image quality: Diagnostic. Lower Chest: No significant findings. ABDOMEN: Liver: No contour-deforming mass. Gallbladder: No radiopaque gallstones or wall thickening. Biliary ducts: No biliary dilation. Pancreas: No ductal dilation. Spleen: Size is within normal limits. Adrenal Glands: No adrenal nodules. Kidneys and Ureters: No hydronephrosis. No contour-deforming mass. Probable left renal cyst Stomach and Bowel: Normal colonic caliber, without significant wall thickening. Prior gastric surgery. Normal appendix. Peritoneum: No abnormal intraperitoneal fluid. No free air. Ventral Wall: No significant hernia. Abdominal Nodes: No retroperitoneal or mesenteric adenopathy by size criteria. Vessels: Aorta and inferior vena cava are normal in size. PELVIS: Pelvic Organs: Unremarkable. IUD. Bladder: Unremarkable. Pelvic Nodes: No enlarged lymph nodes. Miscellaneous: No inguinal hernias are seen. Bones: No aggressive osseous abnormality. IMPRESSION: No acute CT findings in the abdomen and pelvis. Chronic findings as above Note: This final report is concordant with the preliminary after-hours interpretation provided by [employer] Approved by: Ron Wynn M.D. on 06/20/2025 at 9:13
[2025-06-20] MEDS: ONDANSETRON 4 MG/2 ML INJ IV (05:56)
--- NOTE | 2025-06-20 06:01 | PC.NURSE ---
Pt to imaging via ED stretcher with equipment maintenance tech
[2025-06-20 06:23] LABS: Urine N gonorrhoeae NOT DETECTED
[2025-06-20 06:26] LABS: Urine Chlamydia NOT DETECTED
[2025-06-20] MEDS: HYDROCODONE/ACET 5/325 PREPACK 1 BOTTLE MISC (07:31)
[2025-06-20 07:33] VITALS: BP 115/67; PULSE 59; RESP 16; TEMP 36.8; O2SAT 98
== END 2025-06-20 07:37 | disposition home or self-care (01) ==
PROVIDERS: Emergency Provider Emergency Medicine; PCP Family Medicine
DX: R10.2 Pelvic and perineal pain (principal); D25.9 Leiomyoma of uterus, unspecified
CPT/HCPCS: 36415; 74176; 76830; 76856; 80053; 81003; 81015; 81025; 83690; 85025; 87086; 87491; 87591; 96374; 96375; 99284; J1171; J1885; J2405